=== PATIENT | male | born 1975 | race Caucasian/White ===

== ENCOUNTER 2023-05-06 11:52 | Outpatient (AMB) | payer OTHER, SELFPAY ==
--- NOTE | 2023-05-06 12:06 | HO.NEPHOV_ITS ---
HPI HPI Comments History of Present Illness Details Young man with mild CKD and proteinuria is here for annual follow-up [facility] Medical History (Updated 05/06/23 @ 12:19 by Enrique Montano MD) Deviated septum H/O testicular biopsy Surgical History (Updated 05/06/23 @ 12:07 by Kareen Lay MA) H/O knee surgery Family History (Updated 05/06/23 @ 12:08 by Kareen Lay MA) Mother Type 2 diabetes mellitus Social History (Updated 05/06/23 @ 12:09 by Kareen Lay MA) Alcohol intake: current Alcohol intake frequency: a few times a week Patient Tobacco Use Status: Never used Tobacco e-Cigarette/Vaping Use: Never Used Vital Signs 05/06/23 12:09 Height 6 ft Weight 155 lb 4 oz BMI 21.1 BP 130/68 Blood Pressure Location Lt brachial Position Sitting Pulse 91 Pulse Source Pulse Oximeter Pulse Oximetry (%) 97 Oxygen Delivery Method Room Air Physical Exam Vital Signs: Last Vital Signs Pulse 91 05/06/23 12:09 BP 130/68 05/06/23 12:09 Pulse Ox 97 05/06/23 12:09 Oxygen Delivery Method Room Air 05/06/23 12:09 BMI result Body Mass Index 21.1 Const General: comfortable Nutritional Appearance: well nourished Orientation/consciousness: patient oriented x3 HEENT Head: No normal to inspection Mouth: moist mucous membranes Neck Neck: Yes supple and Yes no JVD Resp Auscultation: clear to auscultation bilaterally, no rales and rub present Cardio Jugular venous distension: no JVD Palpation: no palpable S3 and no palpable S4 Heart sounds: no rubs GI Palpation (GI): Soft to palpation and nontender Percussion: No Fluid wave present General: Yes no CVA tenderness Back/Spine/Pelvis Back: no CVA tenderness Skin General skin exam: no rashes or lesions noted Neuro General: patient oriented x3 Extrem General: Yes no pedal edema and No clubbing Assessment & Plan Assessment & Plan (1) Proteinuria: Code(s): R80.9 - Proteinuria, unspecified Plan Young man with mild CKD. He has done very well with the low-dose of TOAN inhibitors. The urine protein excretion has significantly improved. Serum creatinine stable around 1.4 mg/dL. At this point I do not made any changes Continue with low-salt diet and the TOAN inhibitor. Maintain blood pressure less than 130/80 mm Hg and continue to avoid nephrotoxic agents. Orders: Orders Blood Urea Nitrogen 11 Months R80.9 - Proteinuria, unspecified Calcium 11 Months R80.9 - Proteinuria, unspecified Total Protein Urine Random 11 Months R80.9 - Proteinuria, unspecified Electrolytes 11 Months R80.9 - Proteinuria, unspecified Creatinine 11 Months R80.9 - Proteinuria, unspecified Creatinine Urine 11 Months R80.9 - Proteinuria, unspecified UA and rflx microscopic 11 Months R80.9 - Proteinuria, unspecified Coding Level of Care Code Est Pt Level 3 (43722) Diagnoses Proteinuria R80.9
[2023-05-06 12:09] VITALS: BP 130/68; PULSE 91; O2SAT 97; BMI 21.1
== END 2023-05-06 12:25 | disposition home or self-care (01) ==
PROVIDERS: PCP Family Medicine; Visit Provider Internal Medicine Hypertension Specialist
DX: R80.9 Proteinuria, unspecified (principal)
CPT/HCPCS: 99213

== ENCOUNTER → 2023-05-06 11:52 | Outpatient (BNVA) | payer OTHER, SELFPAY | PROVIDERS: PCP Family Medicine; Visit Provider Internal Medicine Hypertension Specialist ==

== ENCOUNTER 2024-05-17 11:27 | Outpatient (AMB) | payer OTHER, SELFPAY ==
--- NOTE | 2024-05-17 11:28 | HO.NEPHOV ---
Vital Signs 05/17/24 11:29 Height 6 ft Weight 157 lb BMI 21.3 BP 168/100 H Blood Pressure Location Lt brachial Position Sitting Pulse 116 H Pulse Source Pulse Oximeter Pulse Oximetry (%) 95 Oxygen Delivery Method Room Air Intake Visit Reasons: f/u, 1 yr/ LVM Intelligence Senior Sergeant Required: No Accompanied by: Self / Same As Patient Allergies aspirin Allergy (Unknown, Verified 05/17/24 11:30) hives ibuprofen Allergy (Unknown, Verified 05/17/24 11:30) Unknown NSAIDS (Non-Steroidal Anti-Inflamma Allergy (Unknown, Verified 05/17/24 11:30) Unknown Medication List - Last Reconciled 05/17/24 by Enrique Montano MD enalapril maleate 10 mg PO DAILY 90 days HPI Comments Details: Young man with mild CKD and proteinuria is here for annual follow-up [facility] Medical History (Updated 05/06/23 @ 12:19 by Enrique Montano MD) Deviated septum H/O testicular biopsy Surgical History H/O knee surgery Family History Mother Type 2 diabetes mellitus Social History Alcohol intake: current Alcohol intake frequency: a few times a week Patient Tobacco Use Status: Never used Tobacco e-Cigarette/Vaping Use: Never Used Physical Exam Vital Signs: Last Vital Signs Pulse 116 H 05/17/24 11:29 BP 168/100 H 05/17/24 11:29 Pulse Ox 95 05/17/24 11:29 Oxygen Delivery Method Room Air 05/17/24 11:29 BMI result Body Mass Index 21.3 Comfortable Neck supple no JVD. Lungs entry equal no rales. Heart S1-S2 heard no gallop or rub. Abdomen soft nontender. Neuro alert awake oriented. No asterixis. Extremities no edema. Results Reviewed Results Reviewed: . Urine Pro: Cr 0.373 Nephrology Results: No Data to Display Assessment & Plan Assessment & Plan (1) Proteinuria: Code(s): R80.9 - Proteinuria, unspecified Category: Medical Plan Young man with mild CKD and proteinuria He has done very well with the low-dose of TOAN inhibitors. The urine protein excretion has significantly improved. Serum creatinine stable around 1.4 mg/dL. At this point I do not made any changes Continue with low-salt diet and the TOAN inhibitor. Maintain blood pressure less than 130/80 mm Hg and continue to avoid nephrotoxic agents. Office BP was elevated HOme readings are excellent Encouraged to monitor BP at home and call me if SBP > 140 mmhg Orders: Orders Basic Metabolic Panel 1 Year R80.9 - Proteinuria, unspecified Creatinine Urine 1 Year R80.9 - Proteinuria, unspecified Basic Metabolic Panel 11 Months R80.9 - Proteinuria, unspecified Total Protein Urine Random 11 Months R80.9 - Proteinuria, unspecified Total Protein Urine Random 1 Year R80.9 - Proteinuria, unspecified UA and rflx microscopic 1 Year R80.9 - Proteinuria, unspecified UA and rflx microscopic 11 Months R80.9 - Proteinuria, unspecified Creatinine Urine 11 Months R80.9 - Proteinuria, unspecified Coding Level of Care Code Est Pt Level 3 (97477) Diagnoses Proteinuria R80.9
[2024-05-17 11:29] VITALS: BP 168/100; PULSE 116; O2SAT 95; BMI 21.3
== END 2024-05-17 11:42 | disposition home or self-care (01) ==
PROVIDERS: PCP Family Medicine; Visit Provider Internal Medicine Hypertension Specialist
DX: R80.9 Proteinuria, unspecified (principal)
CPT/HCPCS: 99213

== ENCOUNTER 2025-05-17 10:45 | Outpatient (AMB) | payer OTHER, SELFPAY ==
[2025-05-17 10:44] VITALS: BP 168/72; PULSE 83; O2SAT 97; BMI 21.4
--- NOTE | 2025-05-17 10:44 | HO.NEPHOV ---
Vital Signs 05/17/25 10:44 Height 6 ft Weight 158 lb BMI 21.4 BP 168/72 H Blood Pressure Location Lt brachial Position Sitting Pulse 83 Pulse Source Pulse Oximeter Pulse Oximetry (%) 97 Oxygen Delivery Method Room Air Intake Visit Reasons: FU-Proteinuria Volcanology Teacher Required: No Accompanied by: Self / Same As Patient Allergies aspirin Allergy (Unknown, Verified 05/17/25 10:44) hives ibuprofen Allergy (Unknown, Verified 05/17/25 10:44) Unknown NSAIDS (Non-Steroidal Anti-Inflamma Allergy (Unknown, Verified 05/17/25 10:44) Unknown Medication List - Last Reconciled 05/17/25 by Enrique Montano MD enalapril maleate 10 mg PO DAILY HPI Comments Details: Young man with mild CKD and proteinuria is here for annual follow-up 05/17/25 The patient is a 49 year old individual presenting for a follow-up visit for management of chronic kidney disease and proteinuria. Recent lab work from two weeks prior showed a creatinine level of 1.5, which is stable compared to 1.6 from the previous year. The urine protein was 0.33, also stable compared to 0.373 from last year. The patient is on enalapril 10 mg and denies any leg swelling, trouble breathing, cough, nausea, vomiting, or lightheadedness. The patient's weight has remained stable around 150 lbs for about 15 years. The patient reports engaging in regular running, including 5Ks and 7-mile trail runs. The patient notes experiencing increased anxiety in medical settings and work-related stress. [facility] Medical History (Updated 05/06/23 @ 12:19 by Enrique Montano MD) Deviated septum H/O testicular biopsy Surgical History H/O knee surgery Family History Mother Type 2 diabetes mellitus Social History Alcohol intake: current Alcohol intake frequency: a few times a week Patient Tobacco Use Status: Never used Tobacco e-Cigarette/Vaping Use: Never Used Physical Exam Vital Signs: Last Vital Signs Pulse 83 05/17/25 10:44 BP 168/72 H 05/17/25 10:44 Pulse Ox 97 05/17/25 10:44 Oxygen Delivery Method Room Air 05/17/25 10:44 BMI result Body Mass Index 21.4 Comfortable Neck supple no JVD. Lungs entry equal no rales. Heart S1-S2 heard no gallop or rub. Abdomen soft nontender. Neuro alert awake oriented. No asterixis. Extremities no edema. Results Reviewed Results Reviewed: . 04/2024 :Urine Pro: Cr 0.373 04/2025 : 0.33 Cr 1.5 Assessment & Plan Assessment & Plan (1) Proteinuria: Code(s): R80.9 - Proteinuria, unspecified Category: Medical Plan Young man with mild CKD and proteinuria He has done very well with the low-dose of TOAN inhibitors. The urine protein excretion has significantly improved. Serum creatinine stable around 1.5 mg/dL. Maintain blood pressure less than 130/80 mm Hg and continue to avoid nephrotoxic agents. Office BP was elevated HOme readings are excellent Encouraged to monitor BP at home and call me if SBP > 140 mmhg Orders: Orders Creatinine Urine 1 Year R80.9 - Proteinuria, unspecified UA and rflx microscopic 1 Year R80.9 - Proteinuria, unspecified Total Protein Urine Random 1 Year R80.9 - Proteinuria, unspecified Basic Metabolic Panel 1 Year R80.9 - Proteinuria, unspecified Coding Level of Care Code Est Pt Level 4 (83213) Diagnoses Proteinuria R80.9
--- OUTSIDE RECORDS SUMMARY | 2025-05-17 12:32 | XMS_ITS | Encounter Summary ---
Author Organization [facility] Address [address] [place] [address] [place] [address] Phone Care Team Providers Care Bronze Chaser Name Role Phone Epifanio Chaudhary DO Unavailable [phone] April Garcia PA-C Unavailable [phone] Jace Thibodeaux MD Primary Care Provider [phone] Encounter Details Date Type Department Care Team (Late st Contact Info) Description 02/22/2022 Procedure Pass [facility] Endoscopy Admitting Dept Virtual Department [address] [place] [address] Social History Tobacco Use Types Packs/Day Years Used Date Smoking Tobacco: Never Smokeless Tobacco: Never Alcohol Use Standard Drinks/Week Comments Yes 1 (1 standard drink = 0.6 oz pur e alcohol) socially Sex and Gender Information Value Date Recorded Sex Assigned at Not on file Legal Sex Male 1:52 PM EST Gender Identity Not on file Sexual Orientation Not on file documented as of this encounter Plan of Treatment Not on file documented as of this encounter Visit Diagnoses Not on filedocumented in this encounter Care Teams Bronze Chaser Relationship Specialty Start Date End Date Jace Thibodeaux MD [address] [place] [address] PCP - General Family Medicine 11/26/19 Epifanio Chaudhary DO [address] [place] [address] Orthopedics & Sports Medicine, [facility] [place] [address] [email or web address] Historical LMR Provider 03/31/17 April Garcia PA-C [address] [place] [address] Orthopedics & Sports Medicine, [place] [address] [email or web address] Historical LMR Provider 03/31/17 documented as of this encounter Additional Source Comments The information contained in this document represents components of the legal health record. It is not the complete legal health record.[facility]
--- OUTSIDE RECORDS SUMMARY | 2025-05-17 12:33 | XMS_ITS | Encounter Summary ---
Author Organization [employer] Address [address] [place] [address] [place] [address] Care Team Providers Care Power Project Manager Name Role Phone Unavailable Primary Care Provider Unavailabl e Encounter Details Date Type Department Care Team (Latest Contact Info) Description 09/25/2018 Abstract [facility] CONVERSIONS Dental, Provider, DDS Social History Tobacco Use Types Packs/Day Years Used Date Smoking Tobacco: Never Assessed Sex and Gender Information Value Date Recorded Sex Assigned at Not on file Legal Sex Male 5:34 PM EDT Gender Identity Not on file Sexual Orientation Not on file documented as of this encounter Plan of Treatment Not on file documented as of this encounter Visit Diagnoses Not on filedocumented in this encounter
--- OUTSIDE RECORDS SUMMARY | 2025-05-17 12:33 | XMS_ITS | Encounter Summary ---
Author Organization [facility] Address [address] [place] [address] Phone Care Team Providers Care Skip Miner Name Role Phone Andrea Méndez DO Primary Care Provider [phone] Andrea Méndez DO Unavailable Epifanio Chaudhary DO Unavailable [phone] Cherry Rucker CLIENT SOLUTIONS SPECIALIST Unavailable [phone] April GarciaC Unavailable [phone] Venu Bhagat MD Unavailable [phone] Irma Wood CLIENT SOLUTIONS SPECIALIST Unavailable [phone] Jace Thibodeaux MD Primary Care Provider [phone] Reason for Referral * Physical Therapy (Routine) - Closed Specialty Diagnoses / Procedures Referred By Contac t Referred To Contact Physical Therapy Diagnoses Encounter for rehabilitation Jace Thibodeaux MD Phone: tel: fax: [email or web address] [facility] [address] [place] [address] Phone: tel: Referral ID Status Reason Start Date Expiration Date Visits Re quested Visits Authorized [id number] Closed 11/22/2019 06/15/2020 16 16 Encounter Details Date Type Department Care Team (Late st Contact Info) Description 11/22/2019 Transcribe Orders [facility] [address] [place] [address] Jace Thibodeaux MD [address] [place] [address] [email or web address] Encounter for rehabilitation (Primary Dx) Social History Tobacco Use Types Packs/Day Years Used Date Smoking Tobacco: Never Smokeless Tobacco: Never Alcohol Use Standard Drinks/Week Comments Yes 0 (1 standard drink = 0.6 oz pur e alcohol) socially Sex and Gender Information Value Date Recorded Sex Assigned at Not on file Legal Sex Male 1:52 PM EST Gender Identity Not on file Sexual Orientation Not on file documented as of this encounter Plan of Treatment Not on file documented as of this encounter Procedures Procedure Name Priority Date/Time Associated Diagnosis Comments AMB REFERRAL TO [facility] PHYSICAL THERAPY Routine 11/26/2019 4:50 PM EDT Encounter for rehabilitation documented in this encounter Results * Ambulatory referral to [facility] Physical Therapy (11/26/2019 4:50 PM EDT) Jace Thibodeaux MD AMB [facility] REFERRALS Final Res ult documented in this encounter Visit Diagnoses Diagnosis Encounter for rehabilitation- Primary documented in this encounter Care Teams Skip Miner Relationship Specialty Start Date End Date Andrea Méndez DO PCP - General Internal Medicine 07/18/15 11/25/19 Jace Thibodeaux MD [address] [place] [address] PCP - General Family Medicine 11/26/19 Andrea Méndez DO [address] [place] [address] Historical LMR Provider 03/31/17 06/23/21 Epifanio Chaudhary DO [address] [place] [address] [facility] [place] [address] Historical LMR Provider 03/31/17 Cherry Rucker NP [address] [place] [address] [email or web address] Historical LMR Provider 03/31/17 2 April Garcia PA-C [address] [facility] Orthopedics & Sports [facility], [place] [address] Historical LMR Provider 03/31/17 Venu Bhagat MD 4 [facility] Orthopedics & Sports [facility], [place] [address] Historical LMR Provider 03/31/17 2 Irma Wood NP [address] [place] [address] Historical LMR Provider 03/31/17 2 documented as of this encounter Additional Source Comments The information contained in this document represents components of the legal health record. It is not the complete legal health record.[facility]
--- OUTSIDE RECORDS SUMMARY | 2025-05-17 12:33 | XMS_ITS | Clinical Summary ---
Author Organization [facility] Address [address] [facility] [address] [place] [address] Phone Care Team Providers Care Track Vehicle Repairer Name Role Phone Epifanio Chaudhary DO Unavailable [phone] April Garcia PA-C Unavailable [phone] Yosi Mahan MD Primary Care Provider [phone] Allergies Active Allergy Reactions Criticality Noted Date Comments Aspirin 10/08/2017 Medications enalapril (VASOTEC) 10 MG tablet Take 10 mg by mouth daily. Active Active Problems No known active problems Social History Tobacco Use Types Packs/Day Years Used Date Smoking Tobacco: Never Smokeless Tobacco: Never Alcohol Use Standard Drinks/Week Comments Yes 1 (1 standard drink = 0.6 oz pur e alcohol) socially Education Answer Date Recorded Are you interested in more education? Not on lilliana e 10/11/2022 Are you concerned about learning? Not on file 10/11/2022 No 10/11/2022 No 10/11/2022 Digital Access Answer Date Recorded No 11/10/2022 No 11/10/2022 Reliable internet access at home? Not on file 11/10/2022 Device with a working camera? Not on file Sex and Gender Information Value Date Recorded Sex Assigned at Not on file Legal Sex Male 1:52 PM EST Gender Identity Not on file Sexual Orientation Not on file Last Filed Vital Signs Vital Sign Reading Time Taken Comments Blood Pressure 107/73 02/22/2022 10:48 AM EDT Pulse 75 02/22/2022 10:48 AM EDT Temperature 36.3 C (97.3 F) 02/22/2022 10:33 AM EDT Respiratory Rate 16 02/22/2022 10:48 AM EDT Oxygen Saturation 98% 02/22/2022 10:48 AM EDT Inhaled Oxygen Concentration - - Weight 68 kg (150 lb) 02/21/2022 9:15 AM EDT Height 182.9 cm (6') 02/21/2022 9:15 AM EDT Body Mass Index 20.34 02/21/2022 9:15 AM EDT Plan of Treatment Health Maintenance Due Date Last Done Comments LIPID PANEL 1976 DEPRESSION SCREENING 1988 HEPATITIS C SCREENING 1994 HIV ONE-TIME SCREENING (18-6 5 YEARS) 1994 CREATININE LEVEL 12/15/2018 12/15/2017 POTASSIUM LEVEL 12/15/2018 12/15/2017 COLOGUARD 2021 FIT TEST 2021 FOBT 2021 SIGMOIDOSCOPY 2021 VIRTUAL COLONOSCOPY 2021 Adult Td,Tdap Booster 02/15/2024 02/14/2014 , 07/04/2010 INFLUENZA VACCINE (#1) 2025 , 04/27/2020 COVID-19 VACCINE (3 - 2024-2 6 season) 2025 05/07/2021, 10/16/2020, 09/18/2020 COLONOSCOPY 02/23/2032 02/22/2022 COLORECTAL CANCER SCREENING 02/23/2032 SMOKING STATUS SCREENING (On ce After 26 Yrs) Completed 02/22/2022 HEPATITIS A VACCINES Aged Out No long er eligible based on patient's age to complete this topic HIB VACCINES Aged Out No longer eligi ble based on patient's age to complete this topic MENINGOCOCCAL VACCINES (ACWY) Aged Out No longer eligible based on patient's age to complete this topic MENINGOCOCCAL VACCINES (B) Aged Out N o longer eligible based on patient's age to complete this topic PNEUMOCOCCAL VACCINES (0-49 years) Aged Out No longer eligible b ased on patient's age to complete this topic Medical Devices Not on file Procedures Procedure Name Priority Date/Time Associated Diagnosis Comments ENDOSCOPY, COLON 02/22/2022 9:50 AM EDT RENAL PANEL Routine 12/15/2017 12:01 PM EDT Small kidney, unspecified Proteinuria, unspecified type Essential hypertension, malignant from Last 3 Months or Most Recently Relevant to Health Maintenance Results * ENDOSCOPY, COLON (02/22/2022 9:50 AM EDT) Narrative Transcriptions Moses Hdz MD - 02/22/2022 9:50 AM EDT Patient Name: Jesús Stauffer Attending MD:: MOSES HDZ MD Procedure Date: 02/22/2022 9:50 AM Date of : 1975 Age: 46 Admit Type: Outpatient Gender: Male Room: [place] [address] Referring MD: YOSI MAHAN MD Exam Type: Colonoscopy Indications: Screening for colorectal malignant neoplasm, Thisis the patient's first colonoscopy Medications: Monitored Anesthesia Care Procedure: Informed consent was obtained from the patientafter discussion of the indications, limitations, alternatives, benefits, and risks of the procedure. Risks specifically discussed include but are not limited to medication reactions, missed lesions, bleeding, perforation, or the need for emergent surgery. Throughout the procedure, the patient's blood pressure, pulse, end-tidal CO2, and oxygensaturations were monitored continuously. The Colonoscope was introduced through the anus and advanced to the terminal ileum. The colonoscopy was performed without difficulty. The patient tolerated the procedure well. The quality of the bowel preparation was good. Anatomical landmarks were photographed. Complications: No immediate complications. Estimated blood loss:None. Findings: The perianal and digital rectal examinations were normal. The rectum, recto-sigmoid colon, sigmoid colon, descending colon, splenic flexure, transversecolon, hepatic flexure, ascending colon, cecum,appendiceal orifice, ileocecal valve, ileum, rectum (on retroflexion) and ascending colon (on retroflexion) appeared normal. Impression: - The rectum, sigmoid colon, descending colon,splenic flexure, transverse colon, hepatic flexure,ascending colon, cecum, rectum (on retroflexion), ascending colon (on retroflexion), ileocecal valve, recto-sigmoid colon, terminal ileum and appendiceal orifice are normal. - No specimens collected. Recommendation: - Discharge patient to home. - Resume previous diet. - Continue present medications. - Repeat colonoscopy in 10 years for screening purposes. - Your colonoscopy was normal with no polyps or colitis. MOSES HDZ MD 02/22/2022 10:29:37 AM This report has been signed electronically. Number of Addenda: 0 Note Initiated On: 02/22/2022 9:50 AM Procedure Code(s): --- Professional --- 55562, Colonoscopy, flexible; diagnostic, including collection of specimen(s) by brushing or washing, when performed (separateprocedure) --- Technical --- 16398, Colonoscopy, flexible; diagnostic, including collection of specimen(s) by brushing or washing, when performed (separateprocedure) Diagnosis Code(s): --- Professional --- Z12.11, Encounter for screening for malignantneoplasm of colon --- Technical --- Z12.11, Encounter for screening for malignantneoplasm of colon CPT copyright 2020 [employer]. All rights reserved. The codes documented in this report are preliminary and upon skeet operator reviewmay be revised to meet current compliance requirements. Procedure Date: 02/22/2022 9:50:[address] [place] [address] Yosi Mahan MD GI PROCEDURE ORDERABLES Fin al Result * (ABNORMAL) Renal panel (12/15/2017 12:01 PM EDT) SODIUM 142 133 - 146 mmol/L [facility] POTASSIUM 4.4 3.3 - 5.1 mmol/L [facility] CHLORIDE 103 96 - 108 mmol/L [facility] CO2 26 21 - 35 mmol/L [facility] GLUCOSE 54(L) 70 - 99 mg/dL [facility] BUN 19 6 - 19 mg/dL [facility] CREATININE 1.20 0.5 - 1.5 mg/dL [facility] CALCIUM 9.5 8.4 - 10.3 mg/dL [facility] PHOSPHORUS 3.3 2.7 - 4.5 mg/dL [facility] ALBUMIN 4.1 3.9 - 4.8 g/dL [facility] EGFR 75 >59 mL/min/1.7 3m2 [facility] Comment:If patient is black, multiply result by 1.159. Estimated glomerular filtration rate calculated using the CKD-EPI equation. ANION GAP 17 10 - 20 mmol/L [facility] Blood 12/15/2017 12:0 1 PM EDT 12/15/2017 12:05 PM EDT Enrique Montano MD LAB BLOOD BKR ORDER BECKI Final Result [facility] [address] [place] [address] from Last 3 Months or Most Recently Relevant to Health Maintenance [place] Care Teams Track Vehicle Repairer Relationship Specialty Start Date End Date Yosi Mahan MD [address] [place] [id number] [email or web address] PCP - General Family Medicine 11/26/19 Epifanio Chaudhary DO [address] [place] [address] Orthopedics & Sports Medicine, [place] [address] [email or web address] Historical LMR Provider 03/31/17 April Garcia PA-C [address] [place] [address] Orthopedics & Sports Medicine, [place] [address] [email or web address] Historical LMR Provider 03/31/17 Additional Source Comments The information contained in this document represents components of the legal health record. It is not the complete legal health record.[facility]
--- OUTSIDE RECORDS SUMMARY | 2025-05-17 12:33 | XMS_ITS | Encounter Summary ---
Author Organization [facility] Address [address] [place] [address] [place] [address] Care Team Providers Care Multigraph Operator Name Role Phone Unavailable Primary Care Provider Unavailabl e Encounter Details Date Type Department Care Team (Latest Contact Info) Description 04/20/2019 Abstract [facility] CONVERSIONS Dental, Provider, DDS Social [...]
--- OUTSIDE RECORDS SUMMARY | 2025-05-17 12:33 | XMS_ITS | Clinical Summary ---
Author Organization [facility] Address [address] [place] [address] 7 [place] [address] Care Team Providers Care Boiler House Supervisor Name Role Phone Unavailable Primary Care Provider Unavailabl e Social History Tobacco Use Types Packs/Day Years Used Date Smoking Tobacco: Never Assessed Sex and Gender Information Value Date Recorded Sex Assigned at Not on file Legal Sex Male 5:34 PM EDT Gender Identity Not on file Sexual Orientation Not on file Plan of Treatment Health Maintenance Due Date Last Done Comments CT Colonography 1976 Colonoscopy 1976 Colorectal Cancer Screening 1976 Depression Screening 1976 FIT DNA/Cologuard 1976 FIT 1976 FOBT 1976 Lipid Panel 1976 Sigmoidoscopy 1976 Disability Screening 1976 Alcohol/Substance Use Screening 1988 Tobacco Screening 1988 Family Planning (PISQ) 11/08/1991 DTaP/Tdap/Td Vaccines (1 - Tdap) 11/08/1995 Hepatitis B Vaccines (1 of 3 - 19+ 3-dose series) 11/08/1995 COVID-19 Vaccine (1 - 2024-2 6 season) 2025 Influenza Vaccine (#1) 2025 Zoster Vaccines (1 of 2) 2026 RSV Patients and Pa tients Aged 60 years or older (1 - 1-dose 75+ series) 11/08/2051 HIB Vaccines Aged Out No longer eligi ble based on patient's age to complete this topic HPV Vaccines Aged Out No longer eligi ble based on patient's age to complete this topic Hepatitis A Vaccines Aged Out No long er eligible based on patient's age to complete this topic IPV Vaccines Aged Out No longer eligi ble based on patient's age to complete this topic Meningococcal B Vaccine Aged Out No l onger eligible based on patient's age to complete this topic Meningococcal Vaccine Aged Out No shameka ajay eligible based on patient's age to complete this topic Pneumococcal Vaccine: Pediat rics (0 to 5 Years) and At-Risk Patients (6 to 49) Years Aged Out No longer eligible b ased on patient's age to complete this topic RSV under 20 months Aged Out No longe r eligible based on patient's age to complete this topic Rotavirus Vaccines Aged Out No longer eligible based on patient's age to complete this topic
--- OUTSIDE RECORDS SUMMARY | 2025-05-17 12:33 | XMS_ITS | Encounter Summary ---
Author Organization [facility] Address [address] [place] [address] [place] [address] Phone Care Team Providers Care Mop Handle Assembler Name Role Phone Andrea Méndez DO Unavailable Epifanio Chaudhary DO Unavailable [phone] Cherry Rucker SPEECH AND DRAMA TEACHER Unavailable April Garcia PA-C Unavailable [phone] Venu Bhagat MD Unavailable [phone] Irma Wood SPEECH AND DRAMA TEACHER Unavailable [phone] Jace Thibodeaux MD Primary Care Provider [phone] Encounter Details Date Type Department Care Team (Late st Contact Info) Description 03/16/2021 Procedure Pass OR Admitting Dept - [facility] Department [address] [place] [phone] Social History Tobacco Use Types Packs/Day Years [...] on filedocumented in this encounter Care Teams Mop Handle Assembler Relationship Specialty Start Date End Date Jace Thibodeaux MD [address] [place] [address] [phone] PCP - General Family Medicine 11/26/19 Andrea Méndez DO [address] [place] [address] Historical LMR Provider 03/31/17 06/23/21 Epifanio Chaudhary DO [address] [place] [address] Orthopedics & Sports Medicine, [place] [address] Historical LMR Provider 03/31/17 Cherry Rucker NP [address] [place] [address] [email or web address] Historical LMR Provider 03/31/17 2 April Garcia PA-C [address] [place] [address] Orthopedics & Sports [facility], [place] [address] Historical LMR Provider 03/31/17 Venu Bhagat MD [address] [place] [address] Orthopedics Sports [facility], [place] [address] Historical LMR Provider 03/31/17 2 Irma Wood NP [address] [place] [address] Historical LMR Provider 03/31/17 2 documented as of this encounter Additional Source Comments The information contained in this document represents components of the legal health record. It is not the complete legal health record.[facility]
--- OUTSIDE RECORDS SUMMARY | 2025-05-17 12:33 | XMS_ITS | Data Portability ---
Author Organization [facility] Patient Home Address [address] [place] [address] Assessment No assessment recorded. Plan of Treatment Reminders Order Date Submit Date Provider Last Modified By Organization Details Last Modified Time Details Appointments None recorded. Lab None recorded. Referral allergy referral 2017 018 MAINORENACM Maguirekelli Travis, [address] [place], [address], 8 08:40:15 Procedures None recorded. Surgeries None recorded. Imaging None recorded. Medication Orders Zantac 150 mg tablet 2017 018 [email or web address] [facility], [address] [place], [address], 9 14:45:43 Patient TargetsNo targets recorded. Patient Instructions Encounter Date Encounter Id Patient Instructions Last Modified By Organization Details Last Modified Time 04/03/2018 [id number] managing your allergies: care instructions [email or web address] Not available 04/03/2018 12:01:03 gastroesophageal reflux disease (GERD): care instructions [email or web address] Not available 04/03/2018 12:01:03 07/31/2018 [id number] gastroesophageal reflux disease (GERD): care instructions Not available 07/31/2018 14:58:40 noonan's esopha sandip: care instructions Not available 07/31/2018 14:58:40 Reason for Referral Allergy Referral for [facility] mental allergy Referring Physician: Ingrid Braden, Internal Medicine, Encounter Date: 04/03/2018 Results Created Date Observation Date Name Description Value Unit Range Abnormal Flag Note LastModifiedBy Organization Detail LastModifiedTime Result Notes None recorded. Problems Name Problem SNOMED Code Status Onset Date Resolution Date Notes Provider Name and Address Organization Details Recorded Time Proteinur ia 97248127 [facility] 8 08:32:56 Atrophy of kidney 941855548 Active 2017 [facility] 8 08:33:12 Obstructi ve sleep apnea syndrome 43263345 Active 2017 [facility] 8 08:33:19 Gastroeso phageal reflux disease 601410516 Active 2017 Opheliajuan a Roberts [facility] 8 08:33:25 Insomnia 458697942 Active 2017 [facility] 8 08:33:34 Noonan's esophagus 922161872 Active 2017 Opheliajuan a Roberts [facility] 8 08:33:42 Chronic kidney disease 550497451 Active 2017 [facility] 8 08:33:52 Deviated nasal septum 563071395 Active 2017 2009 surgery [facility] 8 08:34:11 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 Medical Equipment None Reported. Allergies Allergen ID Allergen Name Allergen Category Reaction Reaction Severity Criticality Documentation Date Start Date Code Code System Note Provider Name and Address Organization Details Recorded Time 2315 aspirin medicatio n Not available Not available Not available 03/06/2018 1191 RxNorm Opheliajuan a Mcfarlanealebradley julián [facility] 8 08:32:46 Medications Name Sig Start Date Stop Date Status Note LastModified by Organization Details LastModified Time enalapril maleate 10 mg tablet Take 1 tablet every day by oral route for 90 days. active Not Available Not Available No t Available Zantac 150 mg tablet Take 1 tablet twice a day by oral route. 018 07/31 completed Not Available Not Available Not Available Vitals Date Recorded Body height Body mass index (BMI) Body weight Heart rate Oxygen saturation Systolic And Diastolic Provider Name and Address Organization Details Last Updated DateTime 9 182.88 cm 21.1 kg/m2 53591.0 5 g 91 /min 99 % 128/70 mm[Hg] Afua Wong [facility] 9 14:31:19 Date Recorded Body weight Body mass index (BMI) Body height Heart rate Oxygen saturation Body temperature Systolic And Diastolic Provider Name and Address Organization Details Last Updated DateTime 8 59238.2 2 g 20.9 kg/m2 182.88 cm 66 /min 99 % 97.6 [degF] 150/92 mm[Hg] Ophelia Roberts [facility] 8 16:06:31 Date Recorded Body height Body mass index (BMI) Body weight Heart rate Oxygen saturation Body temperature Systolic And Diastolic Provider Name and Address Organization Details Last Updated DateTime 8 182.88 cm 21.1 kg/m2 27996.9 7 g 86 /min 98 % 98.2 [degF] 130/74 mm[Hg] Ophelia Roberts [facility] 8 11:42:19 Social History Question Answer Notes LastModified by Organizat ion Details LastModified Time Tobacco Smoking Status Never Smoker Ophelia gallego [facility] 04/03/2018 11:41:01 What Was The Date Of Your Most Recent Tobacco Screening? 07/31/2018 Information n ot available 01/07/2019 Sex: Unknown Functional Status None recorded. Mental Status None recorded. Family History Nothing Reported. Medical History No medical history recorded. Past Encounters Encounter ID Performer Location Encounter Start Date Encounter Closed Date Diagnosis/Indication Diagnosis SNOMED-CT Code Diagnosis ICD10 Code Diagnosis IMO Codes Diagnosis Note [id number] Andrea Méndez DO [facility] Internal Medicine [address] [facility] [place] [address] 03/06/2018 16:00:02 03/09/2018 12:40:29 Atrophy of kidney 453488463 N26.1 Hand wart 464712623 B07. 8 try OTC compound W on hands On examina tion - initial high BP 617059318 R03.0 pt has $40 copay, does not want to come in for BP recheck-to check at home and call results [id number] Andrea Méndez [facility] Internal Medicine [address] [facility] [place] [address] 04/03/2018 11:36:40 04/03/2018 14:18:59 Environmental allergy 554100895 T78.49XA Gastroesop hageal reflux disease 601027826 K21.9 [id number] Andrea Méndez [facility] Internal Medicine [address] [facility] [place] [address] 07/31/2018 14:22:21 07/31/2018 15:20:31 Noonan's esophagus 678212913 K22.70 will need a referral to a GI spec as soon as he figures out if he can have it donw as an outpt due to his insurance Gastroesop hageal reflux disease 780217265 K21.9 EGD first then we'll see about tx Health Concerns Section Related Observation LastModified by Organization Detai ls LastModified Time None Recorded Concern Status LastModified by Organization Details LastModified Time None Recorded Advance Directives Directive None Recorded Payers Insurance Date Sequence Insurance Name Policy Number Policy Jones Covered Member ID Jones Member ID Guarantor Name 07/31/2018 1 [facility] [employer] [facility] Jesús Stauffer [id number] Jesús Stauffer 07/31/2018 1 [facility] [id number] Jesús Stauffer [id number] Jesús Stauffer Notes Date Note Type Note Provider Name a nd Address Organization Details Recorded Time 03/06/2018 text/html ROS as noted in the HPI Home BP's 120's/70's See's banking representative Q year, congenital atrophic kidney nervous today worried about warts, has several on hands and feet- they seem to be improving with duct tape treatment. Also notes 2 red skin lesions Ingrid Braden NP, [address] [place], [address], [facility] Internal [facility] 03/06/2018 17:00:41 04/03/2018 text/html ROS as noted in the HPI 2009 diagnosed with Barretts esophagus, was on omeprazole Didn't want to take- tried natural remedies last UGI 2016 no Barretts identified Has been having some increased heartburn over last couple months Dentist noted pharynx irritated Very anxious /hx: mold allergy ( cleaned home ) Cleaned up diet by eliminating tomatoes, peppers & spicy foods Started probiotic Wants to avoid medications, feels symptoms r/t allergies. Does have post nasal drip Ingrid Braden NP, [address] [place], [address], [facility] Medicine 04/03/2018 12:13:45 07/31/2018 text/html ROS as noted in the HPI here for eval o chronic reflux hx states has had a hx of barretts esophagus in the past via egd and is wondering where he stands now as the barretts had disappeared with diet and lifestyle change relates that he has been under a lot of stress Andrea Méndez, DO [address] [place], [address], [facility] 07/31/2018 15:02:09
--- OUTSIDE RECORDS SUMMARY | 2025-05-17 12:33 | XMS_ITS | Clinical Summary ---
Author Organization [facility] Address [address] [address] Care Team Providers Care Carbon Paste Mixer Operator Name Role Phone Jace Thibodeaux MD Primary Care Provider Allergies Active Allergy Reactions Criticality Noted Date Comments Aspirin Other (see comments) 01/22/2021 Medications enalapril (VASOTEC) 10 MG tabletIndication s:Atrophy of kidney,Stage 3 chronic kidney disease, not otherwise specified (HCC) Take 1 tablet (10 mg total) by mouth 1 (one) time each day 90 tablet 3 07/29/2022 Active Active Problems Problem Noted Date Diagnosed Date Essential hypertension 04/05/2021 Small kidney 04/05/2021 Atrophy of kidney 03/06/2018 Chronic kidney disease 03/06/2018 Deviated nasal septum 03/06/2018 [place] esophagus 03/06/2018 Insomnia 03/06/2018 Obstructive sleep apnea syndrome 03/06/2018 Proteinuria 03/06/2018 Family History Medical History Relation Comments Cancer Father colon Diabetes Mother 2 Relation Status Comments Father Unknown Mother Unknown Social History Tobacco Use Types Packs/Day Years Used Date Smoking Tobacco: Never Smokeless Tobacco: Never Tobacco Cessation:Counseling Given: Not Answered Alcohol Use Standard Drinks/Week Comments Yes 0 (1 standard drink = 0.6 oz pure alcohol) Alcoholic Drinks/day: Occasional social drink Sex and Gender Information Value Date Recorded Sex Assigned at Not on file Legal Sex Male 4:59 PM EST Gender Identity Not on file Sexual Orientation Not on file Last Filed Vital Signs Vital Sign Reading Time Taken Comments Blood Pressure 130/80 04/11/2022 3:31 PM EDT Pulse 69 04/11/2022 3:31 PM EDT Temperature - - Respiratory Rate - - Oxygen Saturation 99% 04/11/2022 3:31 PM EDT Inhaled Oxygen Concentration - - Weight 69.2 kg (152 lb 9.6 oz) 04/11/2022 3:31 P M EDT Height 182.9 cm (6') 04/11/2022 3:31 PM EDT Body Mass Index 20.7 04/11/2022 3:31 PM EDT Plan of Treatment Health Maintenance Due Date Last Done Comments Hepatitis B Vaccine (1 of 3 - 19+ 3-dose series) 11/07 Pneumococcal Vaccine: Peds ( 0 to 5 Years) and At-Risk Patients (6 to 49 Years) (1 of 2 - PCV) 11/08/1995 Influenza Vaccine (#1) 2025 Care Teams Carbon Paste Mixer Operator Relationship Specialty Start Date End Date Jace Thibodeaux MD [address] [place] [phone] PCP - General 06/26/20
--- OUTSIDE RECORDS SUMMARY | 2025-05-17 12:33 | XMS_ITS | Encounter Summary ---
Author Organization [facility] Address [address] [facility] [address] [place] [address] Phone Care Team Providers Care Gui Developer Name Role Phone Andrea Méndez DO Primary Care Provider [phone] Andrea Méndez DO Unavailable Epifanio Chaudhary DO Unavailable [phone] Cherry Rucker MICROBIOLOGY TECHNOLOGIST Unavailable April Garcia PA-C Unavailable [phone] Venu Bhagat MD Unavailable [phone] Irma Wood MICROBIOLOGY TECHNOLOGIST Unavailable [phone] Andrea Méndez DO Unavailable Jace Thibodeaux MD Primary Care Provider [phone] Encounter Details Date Type Department Care Team (Late st Contact Info) Description 12/15/2017 Transcribe Orders [address] [address] Enrique Montano MD [address] [facility] [address] [place] [address] Small kidney, unspecified (Primary Dx); Proteinuria, unspecified type; Essential hypertension, malignant Social History Tobacco Use Types Packs/Day Years [...] on file documented as of this encounter Results * (ABNORMAL) Microalbumin/creatinine ratio, random urine (12/15/2017 12:05 PM EDT) URINE MICROALBUMIN 24.2(H) 0 - 2.3 mg/dL [facility] URINE CREATININE 77 mg/dL PROFESSOR OF EXERCISE SCIENCE [facility] MICROALB/CRE RATIO 314.3(H) 0 - 20 mg/g Cre [facility] Urine (Urine) 12/15/2017 12: 05 PM EDT 12/15/2017 12:07 PM EDT us Enrique Montano MD LAB URINE ORDERABLE S Final Result Performing Organization Address City[facility] Co de Phone Number [address] [address] * (ABNORMAL) Urinalysis with sediment (12/15/2017 12:05 PM EDT) WBC 0-4(A) NONE SEEN /hpf [facility] RBC NONE SEEN NONE SEEN /hpf [facility] URINE EPITHELIAL 0-4(A) NONE SEEN [facility] MUCUS NONE SEEN NONE SEEN /hpf [facility] BACTERIA NONE SEEN NONE SEEN [facility] COLOR Yellow Yellow [facility] CLARITY Clear [facility] GLUCOSE Negative Negative [facility] BILI Negative Negative [facility] KETONES Negative Negative [facility] SPECIFIC GRAVITY 1.015 1.005 - 1.030 [facility] BLOOD Negative Negative [facility] PH 7.5 5.0 - 8.0 [facility] Protein-UA 1+(A) Negative [facility] NITRITE Negative Negative [facility] Leukocyte esterase, ur Negative Negative [facility] Urine (Urine) 12/15/2017 12: 05 PM EDT 12/15/2017 12:07 PM EDT us Enrique Montano MD LAB URINE ORDERABLE S Final Result Performing Organization Address City/[facility]/ZIP Co de Phone Number [address] [address] * (ABNORMAL) Renal panel (12/15/2017 12:01 PM EDT) SODIUM 142 133 - 146 mmol/L [facility] POTASSIUM 4.4 3.3 - 5.1 mmol/L [facility] CHLORIDE 103 96 - 108 mmol/L [facility] CO2 26 21 - 35 mmol/L [facility] GLUCOSE 54(L) 70 - 99 mg/dL [facility] BUN 19 6 - 19 mg/dL [facility] CREATININE 1.20 0.5 - 1.5 mg/dL [facility] CALCIUM 9.5 8.4 - 10.3 mg/dL [facility] PHOSPHORUS 3.3 2.7 - 4.5 mg/dL [facility] ALBUMIN 4.1 3.9 - 4.8 g/dL [facility] EGFR 75 >59 mL/min/1.7 3m2 [facility] Comment:If patient is black, multiply result by 1.159. Estimated glomerular filtration rate calculated using the CKD-EPI equation. ANION GAP 17 10 - 20 mmol/L [facility] Blood 12/15/2017 12:0 1 PM EDT 12/15/2017 12:05 PM EDT Enrique Montano MD LAB BLOOD BKR ORDER BECKI Final Result Performing Organization Address [facility] Co de Phone Number [address] [address] documented in this encounter Visit Diagnoses Diagnosis Small kidney, unspecified- Primary Proteinuria, unspecified type Essential hypertension, malignant documented in this encounter Care Teams Gui Developer Relationship Specialty Start Date End Date Andrea Méndez DO [email or web address] PCP - General Internal Medicine 07/18/15 11/25/19 Jace Thibodeaux MD [address] [place] [address] PCP - General Family Medicine 11/26/19 Andrea Méndez DO [address] [place] [address] Historical LMR Provider 03/31/17 06/23/21 Epifanio Chaudhary DO [address] [place] [address] Orthopedics Sports [facility], [place] [address] Historical LMR Provider 03/31/17 Cherry Rucker NP [address] [place] [address] [email or web address] Historical LMR Provider 03/31/17 2 April Garcia PA-C [address] [place] [address] Orthopedics Sports [facility], [place] [address] Historical LMR Provider 03/31/17 Venu Bhagat MD [address] [place] [address] Orthopedics Sports [facility], [place] [address] Historical LMR Provider 03/31/17 2 Irma Wood NP [address] [place] [address] Historical LMR Provider 03/31/17 2 Andrea Méndez DO [address] [place] [address] [email or web address] Insurance Assigned Provider 10/17/18 02/20/19 documented as of this encounter Additional Source Comments The information contained in this document represents components of the legal health record. It is not the complete legal health record.[facility]
== END 2025-05-17 11:00 | disposition home or self-care (01) ==
LOC: HO.HKA 10:46
PROVIDERS: PCP Family Medicine; Visit Provider Internal Medicine Hypertension Specialist
DX: R80.9 Proteinuria, unspecified (principal)
CPT/HCPCS: 99214